=== PATIENT | female | born 1985 | race Caucasian/White ===

== ENCOUNTER 2017-04-09 10:16 | Emergency (ER) | payer OTHER ==
[~2017-04-09] VITALS: Ht 165.1 cm; Wt 74.8 kg
[~2017-04-09 10:16] MED LIST: PRED-220 PO
[2017-04-09] MEDS: methylPREDNISolone SOD SUCC PF 125 MG/2 ML VIAL. IM ONE (10:49)
[2017-04-09] MEDS ORDERED: ADAL40PE SQ (11:15)
[2017-04-09] MEDS ORDERED: TRAM-48 PO (11:15)
--- NOTE | 2017-04-09 11:15 | PHYS DOC ---
Past History Past Medical History: Other Additional Past Medical Histor: rheumatoid arthritis Past Surgical History: Other Alcohol Use: None Drug Use: None Adult General Chief Complaint Chief Complaint: GENERALIZED BODY ACHES, needs prescription of her medication HPI HPI 31-year-old female patient with history of rheumatoid arthritis on Humira, prednisone, Ultram and Mobic moved from [place] to this area 2 weeks ago and did not have any Humira that usually takes 1 injection every other 2 weeks and complaining of increasing head pain and swelling of small joins did not get better with increasing the dose of prednisone from 5 mg to 50 mg daily. Just a she contacted her doctor office in [place] and her doctor stated that she is not able to give prescription for Humira and she asking for refill of Humira and tramadol. Patient denies fever and chills, focal neuro deficit, nausea and vomiting, . Review of Systems Review of Systems Constitutional: Denies fever or chills [] Eyes: Denies change in visual acuity, redness, or eye pain [] HENT: Denies nasal congestion or sore throat [] Respiratory: Denies cough or shortness of breath [] Cardiovascular: No additional information not addressed in HPI [] GI: Denies abdominal pain, nausea, vomiting, bloody stools or diarrhea [] : Denies dysuria or hematuria [] Musculoskeletal: Reports joint pain [] Integument: Denies rash or skin lesions [] Neurologic: Denies headache, focal weakness or sensory changes [] Endocrine: Denies polyuria or polydipsia [] All other systems were reviewed and found to be within normal limits, except as documented in this note. Current Medications Current Medications Current Medications Medications (Trade) Dose Ordered Sig/Nav Start Time Stop Time Status Last Admin Dose Admin Methylprednisolone Sodium Succinate (SOLU-Medrol 125MG VIAL) 125 mg 1X ONCE 04/09/17 10:45 04/09/17 10:54 DC 04/09/17 10:49 125 MG Allergies Allergies Allergies Coded Allergies Type Severity Reaction Last Updated Verified No Known Drug Allergies 04/09/17 No Physical Exam Physical Exam Constitutional: Well developed, well nourished, mild distress, non-toxic appearance. [] HENT: Normocephalic, atraumatic, bilateral external ears normal, oropharynx moist, no oral exudates, nose normal. [] Eyes: PERRLA, EOMI, conjunctiva normal, no discharge. [] Neck: Normal range of motion, no tenderness, supple, no stridor. [] Cardiovascular:Heart rate regular rhythm, no murmur [] Lungs & Thorax: Bilateral breath sounds clear to auscultation [] Skin: Warm, dry, no erythema, no rash. [] Back: No tenderness, no CVA tenderness. [] Extremities: Tenderness of metatarsophalangeal joint with mild edema without erythema Neurologic: Alert and oriented X 3, normal motor function, normal sensory function, no focal deficits noted. [] Psychologic: Affect normal, judgement normal, mood normal. [] Current Patient Data Vital Signs Vital Signs Date Time Temp Pulse Resp B/P (MAP) Pulse Ox O2 Delivery O2 Flow Rate FiO2 04/09/17 10:52 64 17 98 Room Air 04/09/17 10:32 98.1 EKG EKG [] Radiology/Procedures Radiology/Procedures [] Course & Med Decision Making Course & Med Decision Making Evaluation of patient in ER showed 30-year-old female patient presented to ER with complaining of increasing joint pain after she ran out of her Humira and tramadol. She had marked joint edema and tenderness without erythema. Patient had Solu-Medrol IM in ER and plan to give prescription for Humira and Ultram and instruction to follow with her primary care physician in 2 or 3 days. Dragon Disclaimer Dragon Disclaimer This electronic medical record was generated, in whole or in part, using a voice recognition dictation system. Departure Departure: Impression: Primary Impression: Rheumatoid arthritis flare Additional Impression: Encounter for medication refill Disposition: HOME, SELF-CARE (At 1113) Condition: IMPROVED Referrals: PCP,CARLOS (PCP) Patient Instructions: Medication Refill, Emergency Department, Rheumatoid Arthritis Additional Instructions: Follow-up with your primary care physician in 2 or 3 days Continue current home medication Scripts Adalimumab (HUMIRA) 40 Mg/0.8 Ml Pen.ij.kit 1 SYR SQ Q2WKS, #2 SYR 3 Refills Prov: MICHAEL SIMS MD 04/09/17 Tramadol Hcl (ULTRAM) 50 Mg Tablet 50 MG PO PRN Q6HRS Y for PAIN, #20 TAB Prov: MICHAEL SIMS MD 04/09/17 Problem Qualifiers MICHEAL SIMS MD Apr 09, 2017 11:15
[2017-04-09 11:24] VITALS: BP 106/67
== END 2017-04-09 11:25 | disposition home or self-care (01) ==
LOC: ER 10:16
DX: Z76.0 Encounter for issue of repeat prescription (principal); M06.9 Rheumatoid arthritis, unspecified
CPT/HCPCS: 96372; 99283; J2930

== ENCOUNTER 2017-06-09 15:41 | Emergency (ER) | payer OTHER ==
[~2017-06-09] VITALS: Ht 165.1 cm; Wt 76.2 kg
[~2017-06-09 15:41] MED LIST changes: +ADAL40PE SQ; +TRAM-48 PO
[2017-06-09] MEDS ORDERED: GABA-585 PO (16:32)
[2017-06-09 16:45] LABS: COLOR,URINE YELLOW
[2017-06-09 16:46] LABS: BACTERIA,URINE 0 /HPF (0-FEW); BILIRUBIN,URINE NEG (NEG); CLARITY,URINE CLEAR; GLUCOSE,URINE NEG (NEG); NITRITE,URINE NEG (NEG); SQUAMOUS EPITHELIAL CELL,UR FEW /LPF; UROBILINOGEN,URINE 0.2 mg/dL (0.2 mg/dL); WBC,URINE 0 /HPF (0-4)
[2017-06-09] MEDS ORDERED: KETOROLAC 30 MG/ML VIAL. IV ONE (17:00)
[2017-06-09] MEDS ORDERED: IOHEXOL 300 MG/ML 75 ML VIAL. IV ONE (17:00)
[2017-06-09 17:27] LABS: BASO # 0.1 x10^3/uL (0.0-0.2); BASO % 1 % (0-3); EOS # 0.1 x10^3/uL (0.0-0.7); EOS % 1 % (0-3); HEMATOCRIT 41.6 % (36.0-47.0); HEMOGLOBIN 13.7 g/dL (12.0-15.5); LYMPH # 4.1 x10^3/uL (1.0-4.8); LYMPH % 31 % (24-48); MEAN CORPUSCULAR HEMOGLOBIN 29 pg (25-35); MEAN CORPUSCULAR HGB CONC 33 g/dL (31-37); MEAN CORPUSCULAR VOLUME 87 fL (79-100); MONO # 0.7 x10^3/uL (0.0-1.1); MONO % 5 % (0-9); NEUT # 8.2 x10^3uL (1.8-7.7); NEUT % 62 % (31-73); PLATELET COUNT 310 x10^3/uL (140-400); RED BLOOD COUNT 4.78 x10^6/uL (3.50-5.40); RED CELL DISTRIBUTION WIDTH 13.7 % (11.5-14.5); WHITE BLOOD COUNT 13.3 x10^3/uL (4.0-11.0)
--- NOTE | 2017-06-09 17:29 | RAD ---
Indication: Abdominal pain Technique: CT abdomen and pelvis with IV contrast with multiplanar reformats. Comparison: None Findings: Heart is normal in size. No pericardial effusion. 2 mm subpleural nodule in the right lower lobe (series 2 image 8). Liver, spleen, gallbladder, pancreas, adrenals are within normal limits. Punctate nonobstructing stone is seen in the upper pole of the left kidney. Right kidney is atrophic with dilated pelvicalyceal system with layering high attenuating material most likely stones. No retroperitoneal or pelvic adenopathy. No bowel obstruction. Normal appendix. Anteverted uterus. Urinary bladder demonstrates no radiopaque stones. No free pelvic fluid. Likely a dominant follicle in the left ovary. No suspicious solid adnexal lesion. No suspicious bony lesion. 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 No evidence of obstructive uropathy. PQRS Compliance Statement: One or more of the following individualized dose reduction techniques were utilized for this examination: 1. Automated exposure control 2. Adjustment of the mA and/or kV according to patient size 3. Use of iterative reconstruction technique
[2017-06-09 17:35] LABS: ALBUMIN 3.9 g/dL (3.4-5.0); ALBUMIN/GLOBULIN RATIO 1.1 (1.0-1.7); CALCIUM 9.6 mg/dL (8.5-10.1); CREATININE 0.7 mg/dL (0.6-1.0); GFR 96.4; POTASSIUM 3.5 mmol/L (3.5-5.1); TOTAL BILIRUBIN 0.4 mg/dL (0.2-1.0); TOTAL PROTEIN 7.6 g/dL (6.4-8.2)
--- NOTE | 2017-06-09 17:58 | PHYS DOC ---
Past History Past Medical History: Kidney Stones, Other Additional Past Medical Histor: rheumatoid arthritis Past Surgical History: Tonsillectomy, Other Alcohol Use: None Drug Use: None Adult General Chief Complaint Chief Complaint: FLANK PAIN HPI HPI Patient is a 31 year old F who presents with lower abdominal pain bilaterally radiating to the back with intermittent intensity. She states that she had severe right flank pain 3 days ago which seemed to improve. Her lower abdominal pain started today. She also describes increased vaginal discharge without odor. She has mild spotting vaginally. She states her last period was 3 weeks ago and this would be approximately one week early. She denies urinary symptoms. She does have a history of kidney stones and frequent urinary tract infections. She does not feel that either of these represent her current symptoms. She has had normal bowel movements without difficulty. She's been eating without difficulty and has no nausea or vomiting. She has no others associated symptoms and no other exacerbating or alleviating factors. Review of Systems Review of Systems Constitutional: Denies fever or chills [] Eyes: Denies change in visual acuity, redness, or eye pain [] HENT: Denies nasal congestion or sore throat [] Respiratory: Denies cough or shortness of breath [] Cardiovascular: No additional information not addressed in HPI [] GI: Denies nausea, vomiting, bloody stools or diarrhea [] : Denies dysuria or hematuria [] Musculoskeletal: Denies back pain or joint pain [] Integument: Denies rash or skin lesions [] Neurologic: Denies headache, focal weakness or sensory changes [] Endocrine: Denies polyuria or polydipsia [] All other systems were reviewed and found to be within normal limits, except as documented in this note. Family History Family History No pertinent family medical history was reported Current Medications Current Medications Current medications reviewed Current Medications Medications (Trade) Dose Ordered Sig/Nav Start Time Stop Time Status Last Admin Dose Admin Iohexol (Omnipaque 300 Mg/ml) 75 ml 1X ONCE 06/09/17 17:00 06/09/17 17:01 DC 06/09/17 17:10 75 ML Ketorolac Tromethamine (Toradol) 30 mg 1X ONCE 06/09/17 17:00 06/09/17 17:00 DC Allergies Allergies Allergies Coded Allergies Type Severity Reaction Last Updated Verified No Known Drug Allergies 06/09/17 No Physical Exam Physical Exam Constitutional: Well developed, well nourished, no acute distress, non-toxic appearance. [] HENT: Normocephalic, atraumatic, Eyes: EOMI, conjunctiva normal, no discharge. [] Neck: Normal range of motion, no tenderness, supple, no stridor. [] Cardiovascular:Heart rate regular rhythm, no murmur [] Lungs & Thorax: Bilateral breath sounds clear to auscultation [] Abdomen: Bowel sounds normal, soft, no masses, no pulsatile masses. [] Mild mid lower abdomen tenderness to deep palpation Skin: Warm, dry, no erythema, no rash. [] Back: No tenderness, no CVA tenderness. [] Extremities: No tenderness, no cyanosis, no clubbing, ROM intact, no edema. [] Neurologic: Alert and oriented X 3, normal motor function, normal sensory function, no focal deficits noted. [] Psychologic: Affect normal, judgement normal, mood normal. [] Current Patient Data Vital Signs Vital Signs Date Time Temp Pulse Resp B/P (MAP) Pulse Ox O2 Delivery O2 Flow Rate FiO2 06/09/17 15:41 98.0 76 18 99 Room Air Lab Results Laboratory Tests Test 06/09/17 15:11 06/09/17 16:03 06/09/17 17:00 POC Urine HCG, Qualitative hcg negative (Negative) Urine Collection Type Unknown Urine Color Yellow Urine Clarity Clear Urine pH 5.5 Urine Specific [place] 1.025 Urine Protein Neg (NEG-TRACE) Urine Glucose (UA) Neg mg/dL (NEG) Urine Ketones (Stick) Neg mg/dL (NEG) Urine Blood Mod (NEG) Urine Nitrite Neg (NEG) Urine Bilirubin Neg (NEG) Urine Urobilinogen Dipstick 0.2 mg/dL (0.2 mg/dL) Urine Leukocyte Esterase Neg (NEG) Urine RBC 6-10 /HPF (0-2) Urine WBC 0 /HPF (0-4) Urine Squamous Epithelial Cells Few /LPF Urine Bacteria 0 /HPF (0-FEW) Urine Mucus Slight /LPF White Blood Count 13.3 x10^3/uL (4.0-11.0) H Red Blood Count 4.78 x10^6/uL (3.50-5.40) Hemoglobin 13.7 g/dL (12.0-15.5) Hematocrit 41.6 % (36.0-47.0) Mean Corpuscular Volume 87 fL (79-100) Mean Corpuscular Hemoglobin 29 pg (25-35) Mean Corpuscular Hemoglobin Concent 33 g/dL (31-37) Red Cell Distribution Width 13.7 % (11.5-14.5) Platelet Count 310 x10^3/uL (140-400) Neutrophils (%) (Auto) 62 % (31-73) Lymphocytes (%) (Auto) 31 % (24-48) Monocytes (%) (Auto) 5 % (0-9) Eosinophils (%) (Auto) 1 % (0-3) Basophils (%) (Auto) 1 % (0-3) Neutrophils # (Auto) 8.2 x10^3uL (1.8-7.7) H Lymphocytes # (Auto) 4.1 x10^3/uL (1.0-4.8) Monocytes # (Auto) 0.7 x10^3/uL (0.0-1.1) Eosinophils # (Auto) 0.1 x10^3/uL (0.0-0.7) Basophils # (Auto) 0.1 x10^3/uL (0.0-0.2) Sodium Level 140 mmol/L (136-145) Potassium Level 3.5 mmol/L (3.5-5.1) Chloride Level 103 mmol/L (98-107) Carbon Dioxide Level 28 mmol/L (21-32) Anion Gap 9 (6-14) Blood Urea Nitrogen 17 mg/dL (7-20) Creatinine 0.7 mg/dL (0.6-1.0) Estimated GFR (Cockcroft-Gault) 96.4 BUN/Creatinine Ratio 24 (6-20) H Glucose Level 78 mg/dL (70-99) Calcium Level 9.6 mg/dL (8.5-10.1) Total Bilirubin 0.4 mg/dL (0.2-1.0) Aspartate Amino Transferase (AST) 10 U/L (15-37) L Alanine Aminotransferase (ALT) 15 U/L (14-59) Alkaline Phosphatase 68 U/L (46-116) Total Protein 7.6 g/dL (6.4-8.2) Albumin 3.9 g/dL (3.4-5.0) Albumin/Globulin Ratio 1.1 (1.0-1.7) EKG EKG [] Radiology/Procedures Radiology/Procedures CT abdomen and pelvis Impressions: Radiology report reviewed no acute disease Course & Med Decision Making Course & Med Decision Making Pertinent Labs and Imaging studies reviewed. (See chart for details) [] Dragon Disclaimer Dragon Disclaimer This electronic medical record was generated, in whole or in part, using a voice recognition dictation system. Departure Departure: Impression: Primary Impression: Abdominal pain Disposition: HOME, SELF-CARE Condition: STABLE Referrals: DEMETRA OLIVEIRA MD (PCP) Patient Instructions: Abdominal Pain Additional Instructions: Dayna was seen in the emergency department for abdominal pain. No emergency medical condition was found on history or physical exam. She had normal labs and imaging. Her symptoms did improve. She is advised to return to the emergency room if she develops new or worsening symptoms. She was also advised follow-up with her primary care doctor as needed for further management. Problem Qualifiers Primary Impression: Abdominal pain Abdominal location: lower abdomen, unspecified Qualified Codes: R10.30 - Lower abdominal pain, unspecified CAMILA HINTON MD Jun 09, 2017 17:58
[2017-06-09 18:09] VITALS: BP 130/80
== END 2017-06-09 18:09 | disposition home or self-care (01) ==
LOC: ER 15:41
DX: R10.31 Right lower quadrant pain (principal); R10.32 Left lower quadrant pain; N89.8 Other specified noninflammatory disorders of vagina; Z87.442 Personal history of urinary calculi; Z87.440 Personal history of urinary (tract) infections
CPT/HCPCS: 36415; 74177; 80053; 81001; 81025; 85025; 99285; Q9967

== ENCOUNTER 2017-09-03 10:04 | Emergency (ER) | payer OTHER ==
[~2017-09-03] VITALS: Ht 165.1 cm; Wt 75.7 kg
[~2017-09-03 10:04] MED LIST changes: +GABA-585 PO
--- NOTE | 2017-09-03 10:21 | ED.ADGEN ---
Past History Past Medical History: Kidney Stones, Other Additional Past Medical Histor: rheumatoid arthritis Past Surgical History: Tonsillectomy, Other Alcohol Use: None Drug Use: None Adult General HPI HPI Patient is a 32 year old female who presents with multiple complaints. First, the patient states she was treated for urinary tract infection at the [place]. She was treated with Macrobid. She was called by staff and told she had an infection with Escherichia coli. She continues to have some dysuria symptoms. She was also told that she had a yeast infection and was treated with Diflucan although she continues to have some vaginal irritation. She has been having respiratory symptoms including a sore throat and some sinus drainage over the last 48 hours. Last night, she developed nausea with vomiting. She had many episodes of emesis overnight. She has had some lower abdominal pain but no persistent or severe pain symptoms. She does have a history of kidney stones. She has not had a fever. Denies cough. Her last menstrual cycle was 4 weeks earlier. She was recently placed on a new brand of control pills. She does currently complain of feeling nauseated.. Review of Systems Review of Systems Constitutional: Denies fever or chills Eyes: Denies change in visual acuity HENT: + nasal congestion or sore throat Respiratory: Denies cough or shortness of breath Cardiovascular: No additional information not addressed in HPI GI: Denies n/v. no diarrhea or constipation : + dysuria Musculoskeletal: Denies back pain or joint pain Integument: Denies rash or skin lesions Neurologic: Denies focal neuro complaints All other systems were reviewed and found to be within normal limits, except as documented in this note. Current Medications Current Medications Current Medications Medications (Trade) Dose Ordered Sig/Nav Start Time Stop Time Status Last Admin Dose Admin Ondansetron HCl (Zofran) 4 mg 1X ONCE 09/03/17 10:45 09/03/17 10:47 DC 09/03/17 10:44 4 MG Sodium Chloride 1,000 ml @ 1,000 mls/hr 1X ONCE 09/03/17 10:30 09/03/17 11:29 DC 09/03/17 10:44 1,000 MLS/HR Allergies Allergies Allergies Coded Allergies Type Severity Reaction Last Updated Verified No Known Drug Allergies 06/09/17 No Physical Exam Physical Exam Constitutional: Well developed, well nourished, no acute distress, non-toxic appearance HENT: Normocephalic, atraumatic, bilateral external ears normal, posterior oral pharynx mildly erythematous. no exudates Eyes: PERRLA, EOMI, conjunctiva normal Cardiovascular:Heart rate regular rhythm, no murmur Lungs & Thorax: Bilateral breath sounds clear to auscultation Abdomen: Bowel sounds normal, soft, no tenderness Skin: Warm, dry, pale, no erythema, no rash Back: No tenderness, no CVA tenderness Neurologic: Alert and oriented X 3 Psychologic: Affect normal Pelvic: Normal female external genitalia. Vaginal mucosa is moist and noninflamed. Cervical os is closed and free from abnormal or pathologic- appearing discharge. There is no cervical motion tenderness. There are no adnexal masses and no adnexal tenderness. This is a normal examination. Current Patient Data Vital Signs Vital Signs Date Time Temp Pulse Resp B/P (MAP) Pulse Ox O2 Delivery O2 Flow Rate FiO2 09/03/17 12:30 75 16 109/62 (78) 98 Room Air 09/03/17 10:32 98.6 Lab Results Laboratory Tests Test 09/03/17 10:11 09/03/17 10:30 09/03/17 10:55 09/03/17 11:05 POC Urine HCG, Qualitative hcg negative (Negative) Sodium Level 136 mmol/L (136-145) Potassium Level 4.2 mmol/L (3.5-5.1) Chloride Level 104 mmol/L (98-107) Carbon Dioxide Level 27 mmol/L (21-32) Anion Gap 5 (6-14) L Blood Urea Nitrogen 15 mg/dL (7-20) Creatinine 0.8 mg/dL (0.6-1.0) Estimated GFR (Cockcroft-Gault) 82.1 Glucose Level 79 mg/dL (70-99) Calcium Level 8.8 mg/dL (8.5-10.1) Urine Collection Type Unknown Urine Color [place] Urine Clarity [place]y Urine pH 8.5 Urine Specific [place] 1.015 Urine Protein Neg (NEG-TRACE) Urine Glucose (UA) Neg mg/dL (NEG) Urine Ketones (Stick) Neg mg/dL (NEG) Urine Blood Neg (NEG) Urine Nitrite Neg (NEG) Urine Bilirubin Neg (NEG) Urine Urobilinogen Dipstick 0.2 mg/dL (0.2 mg/dL) Urine Leukocyte Esterase Neg (NEG) Urine RBC 0 /HPF (0-2) Urine WBC Rare /HPF (0-4) Urine Squamous Epithelial Cells Few /LPF Urine Bacteria 0 /HPF (0-FEW) Group A Streptococcus Rapid Negative (NEGATIVE) Microbiology 09/03/17 Wet Prep - Final, Complete EKG EKG [] Radiology/Procedures Radiology/Procedures [] Course & Med Decision Making Course & Med Decision Making Pertinent Labs and Imaging studies reviewed. (See chart for details) Patient is seen and examined on arrival. She has multiple complaints. Her abdominal exam is completely benign and nontender. Will perform pelvic exam and check urinalysis. Will give IV fluids and Zofran for symptom control. Pelvic exam was completed in the ER. The exam was accompanied by female registered nurse. There were no acute findings on the exam. The patient's workup did not reveal urinary tract infection. Since she is still having some dysuria, a urine culture was added to her lab panel. Examination of her ears later in the visit did reveal some bulging and fluid behind the bilateral TMs along with some erythema. Her wet mount was negative. BMP was also negative for acute findings. She was given 1 L of normal saline and some Zofran in the ER. Her symptoms were much improved. Patient was discharged home with a Z-Zack and some Zofran for symptom relief. She is encouraged to follow-up with her primary care doctor or return to the ER for any new or worsening symptoms. Lastly, TSH was added to her lab panel for follow-up purposes. Final Impression Final Impression Viral syndrome Otitis Nausea and Vomiting Wes Disclaimer Wes Disclaimer This electronic medical record was generated, in whole or in part, using a voice recognition dictation system. ARELY GABRIEL DO Sep 03, 2017 10:21
[2017-09-03] MEDS ORDERED: IV NORMAL SALINE 1,000ML 1,000 ML IV ONE (10:30)
[2017-09-03] MEDS ORDERED: ONDANSETRON PF 4 MG/2 ML VIAL. IV ONE (10:45)
[2017-09-03 10:54] LABS: CALCIUM 8.8 mg/dL (8.5-10.1); CREATININE 0.8 mg/dL (0.6-1.0); GFR 82.1; POTASSIUM 4.2 mmol/L (3.5-5.1)
[2017-09-03 11:40] LABS: BILIRUBIN,URINE NEG (NEG); CLARITY,URINE HAZY; COLOR,URINE AMBER; GLUCOSE,URINE NEG (NEG)
[2017-09-03 11:41] LABS: BACTERIA,URINE 0 /HPF (0-FEW); NITRITE,URINE NEG (NEG); RBC,URINE 0 /HPF (0-2); SQUAMOUS EPITHELIAL CELL,UR FEW /LPF; UROBILINOGEN,URINE 0.2 mg/dL (0.2 mg/dL); WBC,URINE RARE /HPF (0-4)
[2017-09-03 12:30] VITALS: BP 109/62
[2017-09-03] MEDS ORDERED: AZIT250T6 PO (12:44)
[2017-09-03] MEDS ORDERED: ONDA4TAB10 SL (12:44)
== END 2017-09-03 12:56 | disposition home or self-care (01) ==
LOC: ER 10:04
DX: B34.9 Viral infection, unspecified (principal); R11.2 Nausea with vomiting, unspecified; H66.93 Otitis media, unspecified, bilateral; R30.0 Dysuria
CPT/HCPCS: 36415; 80048; 81001; 81025; 84443; 87086; 87491; 87591; 87880; 96361; 96374; 99284; J2405; Q0111; J7030